=== PATIENT | male | born 1980 | race Caucasian/White ===

== ENCOUNTER 2020-09-06 09:05 | Emergency (ER) | payer OTHER, SELFPAY ==
[2020-09-06 09:24] VITALS: BP 144/91; PULSE 70; RESP 16; TEMP 36.6; O2SAT 99; BMI 31.4
--- NOTE | 2020-09-06 09:46 | US_ITS ---
EXAMINATION: US SCROTUM CLINICAL INFORMATION: Right-sided pain. COMPARISON: None TECHNIQUE: A sonogram of the scrotum was performed assessing hobbs-scale appearance and color Doppler flow. Spectral Doppler analysis of the arterial and venous flow were performed in the testes bilaterally. FINDINGS: RIGHT: Right testicle measures 5.2 x 2.6 x 3.7 cm, volume 26 mL. No focal testicular parenchymal lesions are visualized. Spectral Doppler analysis of the arterial and venous flow is normal in the right testis. Right epididymal head is normal in size. There is a 0.6 x 0.4 x 0.4 cm right epididymal head cyst. No right hydrocele or varicocele is seen. Right epididymal Doppler flow is normal. LEFT: Left testicle measures 5.1 x 2.5 x 4.4 cm, volume 29.3 mL. No focal testicular parenchymal lesions are visualized. Spectral Doppler analysis of the arterial and venous flow is normal in the left testis. Left epididymal head is normal in size. There is a 3 x 2 x 2 mm left epididymal head cyst. There is a small hydrocele. No left varicocele is seen. Left epididymal Doppler flow is normal. US/US scrotum doppler IMPRESSION: Bilateral epididymal head cysts. Small left hydrocele.
--- NOTE | 2020-09-06 09:51 | ED.BACK ---
HPI - Back Pain/Injury General Chief Complaint: Back Pain/Injury Stated Complaint: groin and back pain no inj Time Seen by Provider: 09/06/20 09:21 Source: patient Mode of arrival: ambulatory History of Present Illness HPI Narrative: 39-year-old male no significant past medical history presenting to the ED complaining of 6-7 months of right-sided low back/right hip/right groin pain. Pain describes as a dull ache, admits to being seen in our ED previously for similar symptoms, had negative CT and labs. Denies trauma/falls or injury. Admits pain occasionally radiates from back to groin and testicle. Denies fever, chills, nausea/vomiting, diarrhea/constipation, dysuria/hematuria, testicular pain/swelling/lesions/or discharge. Is sexually active, denies concern for STIs MD elicited complaint: back pain Related Data Allergies Allergy/AdvReac Type Severity Reaction Status Date / Time cefaclor [From CECLOR] Allergy Unknown UNKNOWN Unverified 06/02/20 19:50 erythromycin base Allergy Unknown UNKNOWN Unverified 06/02/20 19:50 [ERYTHROMYCIN BASE] Review of Systems Review of Systems: Constitutional: No Weight loss, No Fever, No Chills Gastrointestinal: No Nausea, No Vomiting, No Diarrhea, No Constipation, + Abdominal pain Genitourinary: No irregular bleeding, No Dysuria, No Urinary Frequency, No Hematuria, No Urinary Incontinence/retention, No Flank Pain, No testicular/scrotal scheduled penile pain or lesions Musculoskeletal: +R hip/groin pain, No Myalgias, No Joint Swelling Skin: No Skin Lesions, No rash Heme/Lymph: No Bruising, No Bleeding,No Lymphadenopathy Yes all other systems are reviewed and are negative [facility] Past Medical History Attestation statement: The following information was validated with the patient. Surgical History (Updated 09/06/20 @ 09:27 by Minerva Rojas) History of tonsillectomy Social History Social History Alcohol intake: never Smoked in Last 30 Days: No Substance Use Type: Marijuana Substance Use Frequency: Daily Last Used Substance: Days (ago) Advance Directives: No Advance Directives Information Provided: Yes Physical Exam Vital Signs: Vital Signs: Last Vital Signs Temp 97.8 F 09/06/20 09:24 Pulse 70 09/06/20 09:24 Resp 16 12/22/20 09:24 BP 144/91 H 12/22/20 09:24 Pulse Ox 99 09/06/20 09:24 Body Mass Index 31.4 Const: General: cooperative and healthy appearing Orientation/consciousness: patient oriented x3 Limitations: no limitations HENMT: Head: Yes normal to inspection Ears: hearing grossly normal bilaterally General nose exam: Normal external nose present Face and sinus: Yes normal facial exam Eyes: General: appearance normal, both eyes and all related structures EOM: EOMs intact bilaterally Neck: Neck: Yes normal visual inspection Resp: Effort & Inspection: normal respiratory effort Cardio: Rate: regular rate Peripheral pulses: dorsalis pedis present GI: Inspection: Yes normal to inspection Palpation (GI): Soft to palpation, nontender, no guarding and not rigid : Other: No testicular tenderness, swelling, lesions, or hernia noted on exam General: Yes no CVA tenderness Scrotum: scrotum normal Testes: Testes normal Back/Spine/Pelvis: Other: No midline thoracic/lumbar spinous tenderness. No reproducible MSK tenderness. No deformity Back: no CVA tenderness Skin: Rashes: no rashes Wounds: no wounds Neuro: General: patient oriented x3 Gait exam (Neuro): Normal gait present Extrem: General: Yes normal to inspection Course Course Course Narrative: UA negative ultrasound showing bilateral epididymal head cysts. Small left hydrocele > results discussed with patient including follow-up with PCP/GI as needed. He verbalized understanding feel safe for discharge home MDM - Back Pain/Injury MDM Narrative Medical decision making narrative: 39-year-old male no significant past medical history presenting to the ED complaining of 6-7 months of right-sided low back/right hip/right groin pain. On exam VSS, NAD/well-appearing, abdomen soft/nontender, no CVAT, no testicular pain or swelling on exam. Concern for MSK pain vs varicocele or possible testicular etiology although unlikely testicular torsion without tenderness on exam. Lower concern for STI. R/o UTI vs ?pyelo Previous labs and CT reviewed and unremarkale Plan: UA, CT NG, testicular ultrasound Lab Data Labs: Lab Results 09/06/20 09/06/20 Range/Units 10:03 11:02 Urine Color YELLOW Urine Appearance CLEAR Urine pH 5.5 (5.0-8.0) Ur Specific [place] >= 1.030 H (1.005-1.025) Urine Protein NEG (NEG-TRACE) MG/DL Urine Glucose (UA) NEG (NEG) MG/DL Urine Ketones NEG (NEG) MG/DL Urine Blood NEG (NEG) Urine Nitrite NEG (NEG) Ur Leukocyte Esterase NEG (NEG) Chlam trachomat DNA PCR Cancelled N.gonorrhoeae DNA (PCR) Cancelled Discharge Plan Discharge Clinical Impression: Groin strain Qualifiers: Encounter type: subsequent encounter Laterality: right Qualified Code(s): S76.211D - Strain of adductor muscle, fascia and tendon of right thigh, subsequent encounter Patient Disposition: Home, Self-Care Instructions: Groin Strain (ED) Additional Instructions: Your ultrasound showed epididymal head cysts and a small left hydrocele, however nothing that would id cause your pain Your urine was not infected You need to follow-up with primary care doctor for this pain Take Tylenol Motrin at home If pain persists or worsens, have fever, nausea/vomiting, testicular pain/swelling return to the ED Follow-up with GI as needed Referrals: Rich Delacruz MD [Physician] - 2 days Atul Ansari [Physician] - 1 week (as needed)
[2020-09-06 10:57] LABS: Glucose Urine UA NEG (NEG); Leukocyte Esterase Urine NEG (NEG); Nitrite Urine NEG (NEG); PH 5.5 (5.0-8.0); Specific Gravity - Urine >= 1.030 (1.005-1.025); Urine Blood NEG (NEG); Urine Ketones NEG (NEG); Urine Protein NEG (NEG-TRACE)
[2020-09-06 10:58] LABS: Appearance Urine CLEAR; Color Urine YELLOW
[2020-09-06 12:00] VITALS: BP 132/88; PULSE 69; RESP 14; TEMP 36.4; O2SAT 99
[2020-09-07 14:17] LABS: N. gonorrhoeae RNA TMA NOT DETECTED (NOT DETECTED)
[2020-09-08 15:20] LABS: C. trachomatis RNA TMA NOT DETECTED (NOT DETECTED)
== END 2020-09-06 12:28 | disposition home or self-care (01) ==
PROVIDERS: Physician Assistant; Emergency Provider Emergency Medicine
DX: S76.211A Strain of adductor muscle, fascia and tendon of right thigh, initial encounter (principal); R10.30 Lower abdominal pain, unspecified; X58.XXXA Exposure to other specified factors, initial encounter; Y93.9 Activity, unspecified; Y92.9 Unspecified place or not applicable; Y99.9 Unspecified external cause status; F12.90 Cannabis use, unspecified, uncomplicated
CPT/HCPCS: 81003; 87491; 87591; 93975; 99284

== ENCOUNTER → 2020-09-27 11:34 | Outpatient (BNVA) | payer OTHER, SELFPAY | PROVIDERS: PCP Internal Medicine; Visit Provider Physician Assistant | DX: K62.5 Hemorrhage of anus and rectum (principal); K21.9 Gastro-esophageal reflux disease without esophagitis; F41.9 Anxiety disorder, unspecified; R74.01 Elevation of levels of liver transaminase levels; R10.11 Right upper quadrant pain | CPT/HCPCS: 99202 ==

== ENCOUNTER 2020-11-02 09:24 | Day surgery (SDC) | payer OTHER, SELFPAY ==
[2020-10-27 10:53] VITALS: BMI 29.9
--- NOTE | 2020-11-01 09:44 | P.CONAN_ITS ---
Documented by User: Hemalatha Higginbotham 11/01/20 09:45 HPI - Anesthesia Eval Consult details Narrative: 40yo M for Upper Endoscopy and Colonoscopy PMF Active Problems Active Problems: All Active Problems (Updated 10/27/20 @ 10:53 by Lanie Correia) Back pain (Acute) Rectal bleeding (Acute) Anxiety (Acute) Acid reflux (Acute) Past Medical History Medical History Acid reflux Anxiety Stomach ulcer Family History Family History Mother Diabetes Father History of thyroid cancer Sister Stomach cancer Paternal Grandfather Hx of bladder cancer History of colon cancer Surgical History Surgical History History of tonsillectomy Hx of myringotomy Social History Social History Household Members: Significant Other Alcohol intake: never Smoking Status: Former smoker Use of substances other than those prescribed or required for medical reasons: Yes Substance Use Type: Marijuana Substance Use Frequency: Daily Have you been hit, kicked, punched, or otherwise hurt by someone within the past year? 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 Meds Allergies Allergy/AdvReac Type Severity Reaction Status Date / Time cefaclor [From CECLOR] Allergy Severe Swelling Verified 10/27/20 10:51 erythromycin base Allergy Severe Swelling Verified 10/27/20 10:51 [ERYTHROMYCIN BASE] Home Medications Medication Instructions Recorded Confirmed Last Taken Type calcium carbonate-mag hydroxid 2 tab PO Q6H PRN 10/27/20 10/27/20 Unknown History [Rolaids] Exam Exam Date and Time: November 01, 2020 0944 Height,Weight and Vital Signs: Height 6 ft 3 in Weight 108.862 kg Assessment and Plan Assessment Anesthesia Assessment: Chart Reviewed Documented by User: Amanda Merchant 11/02/20 10:42 [facility] Past Medical History Medical History Acid reflux Anxiety Stomach ulcer Family History Family History Mother Diabetes Father History of thyroid cancer Sister Stomach cancer Paternal Grandfather Hx of bladder cancer History of colon cancer Family history of problems with anesthesia: No Surgical History Surgical History History of tonsillectomy Hx of myringotomy History of Problems with Anesthesia: No Social History Social History Household Members: Significant Other Alcohol intake: never Smoking Status: Former smoker Use of substances other than those prescribed or required for medical reasons: Yes Substance Use Type: Marijuana Substance Use Frequency: Daily Have you been hit, kicked, punched, or otherwise hurt by someone within the past year? 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 Meds Allergies Allergy/AdvReac Type Severity Reaction Status Date / Time cefaclor [From CECLOR] Allergy Severe Swelling Verified 10/27/20 10:51 erythromycin base Allergy Severe Swelling Verified 10/27/20 10:51 [ERYTHROMYCIN BASE] Home Medications Medication Instructions Recorded Confirmed Last Taken Type calcium carbonate-mag hydroxid 2 tab PO Q6H PRN 10/27/20 10/27/20 Unknown History [Rolaids] Exam Height,Weight and Vital Signs: Vital Signs Temp Pulse Resp BP Pulse Ox 11/02/20 09:39 97.1 F 68 18 125/79 97 Airway Mallampati Class: II TM Dist: >3cm Neck ROM: Full Loose/Missing/Broken Teeth: No (Front teeth all capped) Heart: RRR Lungs: CTAB Assessment and Plan Assessment Anesthesia Assessment: Anesthesia Plan Discussed and Chart Reviewed Final Anesthetic Review NPO: Yes ASA Class: II Final Preanesthetic Review: No Changes in Pt Med Stat, Meds/Allgs Chart Reviewed, Consent Obtained/Reviewed and Anes Risks/Benef Reviewed Patient Risk: Low Procedure Risk: Low Assessment/Block/Sedation in SS: Assess/Block/Sedation-SS Anesthetic Plan Anesthetic Plan: MAC: Disposition: Standard PACU
[2020-11-02 09:39] VITALS: BP 125/79; PULSE 68; RESP 18; TEMP 36.2; O2SAT 97
[2020-11-02] MEDS: Lactated Ringers 1,000 ML 100 ML IVCONT (10:01)
--- NOTE | 2020-11-02 10:54 | MHC.SHP ---
Pre-Procedural Eval Section B Chief Complaint: gerd,hemorrhageof anus and rectum Details of Present Illness: sister gastric cancer Relevant Family History (Specify if Yes): Yes Relevant Social History: None Present Medications: see Short Stay Collaborative assessment (anxiety, GERD) Medical History: Significant History (anxiety, GERD) History of Previous Operations: Relevant previous surgery/procedure and date(s) (History of placement of ear tubes History of tonsillectomy) Allergies: Allergies Allergy/AdvReac Type Severity Reaction Status Date / Time cefaclor [From CECLOR] Allergy Severe Swelling Verified 10/27/20 10:51 erythromycin base Allergy Severe Swelling Verified 10/27/20 10:51 [ERYTHROMYCIN BASE] Review of Systems Sugical H&P ROS: Negative: Constitution, Cardiovascular, Respiratory, Neurological, Psychiatric, Hem-Onc, Allergic/Immunologic, Gastrointestinal, Genitourinary, Musculoskeletal, Integumentary, Endocrine and Eyes/Ears/Nose/Throat Exam Surgical H&P Exam: Normal: HEENT, Normal: Heart, Normal: Lungs, Normal: Extremities, Normal: Abdomen, Normal: Skin and Normal: Neurological Plan Diagnosis/Plan: Unchanged I have reviewed the history and physical and performed a pertinent physical examination on my patient. No changes have occurred unless specified.
--- NOTE | 2020-11-02 10:56 | PM.OP ---
Brief Operative Note Date of Service: 11/02/20 Post-op diagnosis: same Procedure: see op note Surgeon: Beatriz Cedeño MD Anesthesia: MAC Estimated blood loss (mL): 0 Condition: stable Disposition: PACU
--- NOTE | 2020-11-02 10:56 | W.PM.OPN ---
Operative Note Operative Note Date of Service: 11/02/20 Narrative: Operative Information Procedure Description: EGD, Colonoscopy FLEXIBLE TRANSORAL UPPER GASTROINTESTINAL ENDOSCOPY AND COLONOSCOPY PROCEDURE NOTE UPPER ENDOSCOPY Consent: Indications for the procedure and potential complications of bleeding, perforation, reaction to medications and missed diagnosis were discussed with the patient and informed consent was obtained. Instrument: Olympus GIF H 190 J mid size upper endoscope Monitoring: Vital signs and clinical assessment, continuous EKG monitoring, Pulse oximetry, Carbon Dioxide monitoring and blood pressure monitoring were done throughout the procedure. Procedure: The patient was placed in the left lateral decubitis position and pre-procedure medications were administered and a bite block was placed. The endoscope was inserted into the mouth and advanced under direct vision to the third part of duodenum. A careful inspection was made as the upper endoscope was withdrawn including a retroflexed examination of the proximal stomach; Findings and interventions are described below. Findings: Larynx:normal Esophagus: GE junction at 39 cm, diaphragm hiatus at 42 cm, 3 cm sliding hiatal hernia noted, possible short seg barretts, bx taken Stomach: Normal mucosa. Biopsies were obtained from pylorus, antrum, incisura, body, fudus and cardia. Grade 2 flap valve on retroflexed examination of the cardia. Duodenum: Normal bulb and descending duodenum, Intervention: Biopsies as noted above COLONOSCOPY Instrument: Olympus variable stiffness pediatric scope 190L Colonoscopy Monitoring: Vital signs and clinical assessment, continuous EKG monitoring, Pulse oximetry, Carbon Dioxide monitoring and blood pressure monitoring were done throughout the procedure. Colon withdrawal time was 10 minutes. Procedure: The patient was placed in the left lateral decubitis position and pre-procedure medications were administered. After a digital rectal examination of the ano-rectum, the video colonoscope was inserted into the rectum and advanced through the colon to the cecum/TI. The colonoscope was slowly withdrawn in a retrograde panoramic fashion and the colon mucosa was carefully examined including a retroflexed view of the rectum. Findings and interventions are described below. Procedure Difficulty: Findings: Terminal Ileum-normal Cecum:normal, one diverticulum seen Ascending Colon: normal Transverse Colon -normal Descending Colon:normal Sigmoid Colon: normal, few diverticula seen Rectum: Retroflexion with small inflammed internal hemorrhoids, grade I, mild erythema noted, bx taken Anorectum - normal Colon preparation: [place] Bowel Preparation Scale Right colon; 3 Transverse colon: 3 Left colon; 3 (0 = Unprepared colon segment with mucosa not seen due to solid stool that cannot be cleared. 1 = Portion of mucosa of the colon segment seen, but other areas of the colon segment not well seen due to staining, residual stool and/or opaque liquid. 2 = Minor amount of residual staining, small fragments of stool and/or opaque liquid, but mucosa of colon segment seen well. 3 = Entire mucosa of colon segment seen well with no residual staining, small fragments of stool or opaque liquid) Impression and Post Procedure Diagnosis: Endoscopy Findings: hiatal hernia, possible barretts Colonoscopy Findings: internal hemorrhoids diverticular disease Plan: Await Pathology results Repeat Colonoscopy in 10 years or earlier if clinically indicated High fiber diet leaflet avoid straining at stool, epsom salts and sitz bath, anusol supps or cream prn refer for CDH-1 testing, may need annual EGD given FH of stomach cancer in sister (she is currently 43) Above findings were reviewed with the patient and relevant handouts were provided if indicated.
[2020-11-02 11:57] VITALS: BP 94/55; PULSE 58; RESP 16; TEMP 36.3; O2SAT 96
[2020-11-02 12:12] VITALS: BP 121/76; PULSE 61; RESP 16; TEMP 36.3; O2SAT 97
== END 2020-11-02 12:46 | disposition home or self-care (01) ==
PROVIDERS: Visit Provider Internal Medicine Gastroenterology
PROC: (CPT 45380; principal; 2020-11-02 10:50)
DX: K62.5 Hemorrhage of anus and rectum (principal); K62.89 Other specified diseases of anus and rectum; K64.0 First degree hemorrhoids; K57.30 Diverticulosis of large intestine without perforation or abscess without bleeding; K21.9 Gastro-esophageal reflux disease without esophagitis; K44.9 Diaphragmatic hernia without obstruction or gangrene; F12.90 Cannabis use, unspecified, uncomplicated; Z79.899 Other long term (current) drug therapy; Z88.1 Allergy status to other antibiotic agents
CPT/HCPCS: 45380; 43239; 88305; 88342

== ENCOUNTER → 2020-11-14 09:20 | Outpatient (BNVA) | payer OTHER, SELFPAY | PROVIDERS: Visit Provider Internal Medicine Gastroenterology | DX: K21.9 Gastro-esophageal reflux disease without esophagitis (principal) | CPT/HCPCS: 99211 ==

== ENCOUNTER 2020-12-13 13:01 | Outpatient (REF) | payer OTHER, SELFPAY ==
--- NOTE | ~2020-12-13 | XR_ITS ---
EXAMINATION: LUMBAR SPINE AND BILATERAL HIP X-RAY CLINICAL INFORMATION: Pain COMPARISON: Previous CT of the abdomen and pelvis November 2019 TECHNIQUE: 3 views of the lumbar spine. 2 views of each hip. FINDINGS: Lumbar spine: Bone alignment normal. No fracture or dislocation is seen. Disc spaces are normal. Paraspinal soft tissues are normal. Bilateral hip x-ray: Bone alignment is normal. No fracture or dislocation is seen. The joint spaces are normal. Soft tissues are normal. XR/XR lumbar spine 2-3V IMPRESSION: Normal lumbar spine and bilateral hip x-rays.
--- NOTE | ~2020-12-13 | XR_ITS ---
EXAMINATION: LUMBAR SPINE AND BILATERAL HIP X-RAY CLINICAL INFORMATION: Pain COMPARISON: Previous CT of the abdomen and pelvis November 2019 TECHNIQUE: 3 views of the lumbar spine. 2 views of each hip. FINDINGS: Lumbar spine: Bone alignment normal. No fracture or dislocation is seen. Disc spaces are normal. Paraspinal soft tissues are normal. Bilateral hip x-ray: Bone alignment is normal. No fracture or dislocation is seen. The joint spaces are normal. Soft tissues are normal. XR/XR hip LT min 2V IMPRESSION: Normal lumbar spine and bilateral hip x-rays.
--- NOTE | ~2020-12-13 | XR_ITS ---
EXAMINATION: LUMBAR SPINE AND BILATERAL HIP X-RAY CLINICAL INFORMATION: Pain COMPARISON: Previous CT of the abdomen and pelvis November 2019 TECHNIQUE: 3 views of the lumbar spine. 2 views of each hip. FINDINGS: Lumbar spine: Bone alignment normal. No fracture or dislocation is seen. Disc spaces are normal. Paraspinal soft tissues are normal. Bilateral hip x-ray: Bone alignment is normal. No fracture or dislocation is seen. The joint spaces are normal. Soft tissues are normal. XR/XR hip RT min 2V IMPRESSION: Normal lumbar spine and bilateral hip x-rays.
== END 2020-12-13 13:02 | disposition home or self-care (01) ==
LOC: HO.XRAY 13:01
PROVIDERS: PCP Internal Medicine; Visit Provider Internal Medicine
DX: M54.9 Dorsalgia, unspecified (principal); M25.551 Pain in right hip; M25.552 Pain in left hip
CPT/HCPCS: 72100; 73502

== ENCOUNTER → 2020-12-19 14:39 | Outpatient (BNVA) | payer OTHER, SELFPAY | PROVIDERS: PCP Internal Medicine; Visit Provider Internal Medicine Gastroenterology ==

== ENCOUNTER 2021-01-16 08:28 | Emergency (ER) | payer OTHER, SELFPAY ==
--- NOTE | ~2021-01-16 | CT_ITS ---
EXAMINATION: CT HEAD WITHOUT CONTRAST CLINICAL INFORMATION: Seizure HEADACHE. COMPARISON: None TECHNIQUE: Contiguous axial imaging was performed from the skull base to vertex without intravenous administration of contrast. This CT examination was performed using dose optimization techniques as appropriate, variously including the following: *Automated exposure control *Adjustment of mA and/or kV according to patient size (this includes techniques or standardized protocols for targeted exams where dose is matched to indication/reason for exam; i.e. extremities or head) *Use of iterative reconstruction technique DLP: 824 mGy-cm FINDINGS: There is no evidence of acute intracranial hemorrhage or territorial infarction. No abnormal mass effect or midline shift is seen. Yo to white matter differentiation is well preserved. No extra-axial fluid collections are identified. The ventricles are normal in size. There is no abnormal attenuation within the brain parenchyma. The osseous structures and soft tissues are normal. The mastoid air cells and visualized portions of the paranasal sinuses are well aerated. CT/CT head/brain wo con IMPRESSION: No acute intracranial process seen
--- NOTE | ~2021-01-16 | CT_ITS ---
EXAMINATION: CT ANGIOGRAM NECK WITH CONTRAST CT ANGIOGRAM BRAIN WITH CONTRAST CLINICAL INFORMATION: Severe exertional occipital headache. Rule out dissection and aneurysm. COMPARISON: Noncontrast head CT performed earlier today. TECHNIQUE: Test bolus sequences followed by intravenous administration 70 mL of Omnipaque 350. Helical imaging was performed in the axial plane from the thoracic inlet to the skull vertex. Delayed postcontrast imaging of the head was also performed. The data was processed at the eeg technologist workstation for generation of MIP sequences. Angled MIPs and volume rendered reformatted images were also generated at an offline 3D workstation. Stenoses are assessed in accordance with NASCET criteria unless otherwise indicated. The technologist notes that the IV started leaking during the injection the patient moved. This CT examination was performed using dose optimization techniques as appropriate, variously including the following: *Automated exposure control *Adjustment of mA and/or kV according to patient size (this includes techniques or standardized protocols for targeted exams where dose is matched to indication/reason for exam; i.e. extremities or head) *Use of iterative reconstruction technique DLP: 2285 mGy-cm FINDINGS: Head CT: There is no intracranial hemorrhage, large acute infarction, or mass lesion. The ventricles are normal in size and configuration without evidence of hydrocephalus. No abnormal enhancement is seen. The dural venous sinuses are normally opacified. The visualized paranasal sinuses and mastoid air cells are clear. Neck CTA: There is a normal aortic arch with no significant stenosis of the great vessel origins. The common and internal carotid arteries are normal in course and caliber. Both vertebral arteries are widely patent throughout their extracranial cervical course. Head CTA: No intracranial aneurysm is seen. The intracranial internal carotid arteries appear normal. The anterior cerebral artery, anterior communicating artery, and middle cerebral arteries appear normal. The intradural vertebral arteries and basilar artery appear normal. The posterior cerebral arteries appear normal. Non-vascular findings: The imaged portions of the lungs are clear. The cervical soft tissues are within normal limits. The spine is intact. CT/CT angio head neck IMPRESSION: CT head: No intracranial hemorrhage or large acute infarction. CTA neck: No hemodynamically significant stenosis in the major arteries of the neck. CTA head: No large vessel occlusion or significant stenosis within the intracranial circulation.
[2021-01-16 08:39] VITALS: BP 136/81; PULSE 66; RESP 16; TEMP 36.8; O2SAT 97; BMI 31.4
[2021-01-16 10:35] LABS: MANUAL DIFF FLAG NO
[2021-01-16 10:38] LABS: Basophils Percent Auto 0.5 % (0-2); Eosinophils Absolute Auto 0.2 X10*3/uL (0.0-0.4); Eosinophils Percent Auto 3.3 % (0-4); Hematocrit 41.3 % (42-52); Hemoglobin 14.5 g/dl (14.0-18.0); Imm Gran Abs Auto 0.03 X10*3/uL (0.00-0.03); Imm Gran Pct Auto 0.5 % (0.0-0.4); Lymphocytes Absolute Auto 1.9 X10*3/uL (1.2-4.9); Lymphocytes Percent Auto 30.6 % (20-40); Mean Corpuscular HGB Conc 35.1 g/dl (31.0-36.0); Mean Corpuscular Hemoglobin 29.4 pg (27.0-33.0); Mean Corpuscular Volume 83.6 fL (80-98); Mean Platelet Volume 11.3 fL (9.4-12.4); Monocytes Absolute Auto 0.5 X10*3/uL (0.1-1.2); Monocytes Percent Auto 8.9 % (2-11); Neutrophils Absolute Auto 3.4 X10*3/uL (2.0-8.3); Neutrophils Percent Auto 56.2 % (45-73); Platelet Count 182 X10*3/uL (160-400); Red Blood Count 4.94 X10*6/uL (4.60-5.80); Red Cell Distribution Width 12.7 % (11.0-16.0); White Blood Count 6.1 X10*3/uL (4.8-10.8)
[2021-01-16] MEDS: diphenhydrAMINE HCL 50 MG/ML VIAL 25 MG IVPUSH (11:01)
[2021-01-16] MEDS: Butalb/Acetamin/Caff 50/325/40 TABLET 1 TAB PO (11:01)
[2021-01-16] MEDS: Metoclopramide HCl 10 MG/2 ML VIAL IVPUSH (11:01)
--- NOTE | 2021-01-16 11:13 | ED.HA ---
HPI - Headache General Chief Complaint: Headache Stated Complaint: head pain Time Seen by Provider: 01/16/21 10:21 Source: patient Mode of arrival: ambulatory Limitations: no limitations History of Present Illness HPI Narrative: 40 y/o male with no medical problems presents to the ER with severe posterior, throbbing headache that has occurred for the last 3 days during sexual intercourse. He states the pain makes him curl up into a ball for about 5-10 minutes and then the pain starts to dissipate some. Today the pain persisted so he came to the ER for evaluation. He states it is throbbing in nature and in the back lower part of his head. He has never had headaches like this before. He is not on any medications, including Viagra. He denies weakness, numbness, tingling, dizziness, N/V, or vision changes. Denies trauma or injury. MD elicited complaint: headache Onset (ago): day(s) (3) Onset description: suddenly Location: occipital Severity: severe Quality & Timing: throbbing Exacerbating factors: exertion Relieving factors: rest Context: occurred with exertion/activity Associated symptoms: none Treatments prior to arrival: other (arthritis powder packet ) Related Data Home Medications Medication Instructions Recorded Confirmed calcium carbonate-mag hydroxid 2 tab PO Q6H PRN 10/27/20 10/27/20 [Rolaids] Previous Rx's Medication Instructions Recorded omeprazole 20 mg capsule,delayed 20 mg PO DAILY #30 cap 09/27/20 release bisacodyl 5 mg tablet,delayed 10 mg PO ONCE 1 Days #2 tab 10/27/20 release polyethylene glycol 3350 17 238 g PO ONCE 1 Days #238 g 10/27/20 gram/dose oral powder hydrocortisone 2.5 % topical cream 1 appl ME BID-QID PRN #30 g 12/19/20 with perineal applicator naproxen 500 mg PO BID PRN #20 tab 01/16/21 Allergies Allergy/AdvReac Type Severity Reaction Status Date / Time cefaclor [From [facility]] Allergy Severe Swelling Verified 12/19/20 14:39 erythromycin base Allergy Severe Swelling Verified 12/19/20 14:39 [ERYTHROMYCIN BASE] Review of Systems Review of Systems: Constitutional: No Fever, No Chills ENT/Mouth: No sore throat, No Swallowing Difficulty Eyes: No Eye Pain, No Swelling, No Redness Cardiovascular: No Chest Pain, No SOB Respiratory: No Cough, No Sputum Gastrointestinal: No Nausea, No Vomiting, No Diarrhea, No abdominal Pain Musculoskeletal: No joint pain, No Myalgias Skin: No Skin Lesions, No rash Neuro: No Weakness, No Numbness, No Dizziness, + Headache Heme/Lymph: No Bruising, No Lymphadenopathy PMF Past Medical History Attestation statement: The following information was validated with the patient. Medical History Acid reflux Anxiety Stomach ulcer Surgical History H/O colonoscopy History of esophagogastroduodenoscopy (EGD) History of tonsillectomy Hx of myringotomy Family History Family History Mother Diabetes Father History of thyroid cancer Sister Stomach cancer Paternal Grandfather Hx of bladder cancer History of colon cancer Social History Social History Household Members: Significant Other Household Members Other:: Alcohol intake: never Smoking Status: Former smoker Substance Use Type: Marijuana Advance Directives: Yes Advance Directives Information Provided: Yes Advance Directives on File: No service: No Current occupational status: employed 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 Oriented X3. No acute distress. Eyes: Pupils equal, round and reactive to light. ENT: Pharynx normal. Neck: Normal inspection. Neck supple. CVS: Normal heart rate and rhythm. Pulses normal. Respiratory: No respiratory distress. Breath sounds normal. Abdomen: Soft and nontender. +BS x4 Skin: Skin warm and dry. Normal skin color. Normal skin turgor. No rashes. Extremities: No lower extremity edema. Neuro: Oriented X 3. No motor deficit. No sensory deficit. Equal and symmetrical strength throughout. Normal finger to nose and heel to johnson bilaterally. Course Course Course Narrative: 40 y/o male presenting with severe, throbbing headache that has occurred 3 days in a row during sexual intercourse. Headache persisted today after rest so he came for evaluation. Neuro exam is non-focal. Will get labs and CT head for further evaluation. Given Benadryl, reglan and fiorcet. Reevaluation(s) Reevaluation #1: Lab workup is unremarkable. CT head is negative. Case d/w Dr. Farley - will proceed with CTA head/neck to r/o dissections and aneurysm. Reevaluation #2: CTA negative. Patient's throbbing is now resolved. His headache is likely primary exertional. This was discussed with the patient and need for outpatient follow. MDM - Headache Differential Diagnosis Differential diagnosis: Likely migraine, tension headache, subarachnoid hemorrhage and headache Lab Data Result diagrams: 01/16/21 10:25 01/16/21 10:25 Labs: Lab Results 01/16/21 01/16/21 01/16/21 Range/Units 10:25 10:25 10:25 WBC 6.1 (4.8-10.8) X10*3/uL RBC 4.94 (4.60-5.80) X10*6/uL Hgb 14.5 (14.0-18.0) g/dl Hct 41.3 L (42-52) % MCV 83.6 (80-98) fL MCH 29.4 (27.0-33.0) pg MCHC 35.1 (31.0-36.0) g/dl RDW 12.7 (11.0-16.0) % Plt Count 182 (160-400) X10*3/uL MPV 11.3 (9.4-12.4) fL Immature Gran % (Auto) 0.5 H (0.0-0.4) % Neut % (Auto) 56.2 (45-73) % Lymph % (Auto) 30.6 (20-40) % Quay % (Auto) 8.9 (2-11) % Eos % (Auto) 3.3 (0-4) % Baso % (Auto) 0.5 (0-2) % Lymph # (Auto) 1.9 (1.2-4.9) X10*3/uL Quay # (Auto) 0.5 (0.1-1.2) X10*3/uL Eos # (Auto) 0.2 (0.0-0.4) X10*3/uL Baso # (Auto) 0.0 (0.0-0.2) X10*3/uL Abs Immat Gran (auto) 0.03 (0.00-0.03) X10*3/uL Absolute Neuts (auto) 3.4 (2.0-8.3) X10*3/uL Absolute Nucleated RBC 0.000 (0.0-0.012) X10*3/uL Nucleated RBC % (auto) 0.0 (0.0-0.2) /100WBC Hold Blue Top SEE NOTE Sodium 138 (135-145) mmol/L Potassium 4.5 (3.3-5.1) mmol/L Chloride 102 (96-108) mmol/L Carbon Dioxide 28 (22-29) mmol/L Anion Gap 13 (12-20) BUN 17 H (9-16) mg/dL Creatinine 1.02 (0.5-1.4) mg/dL Estim Creat Clear Calc 127.6 Estimated GFR > 60 Random Glucose 92 (60-115) mg/dL Calcium 9.6 (8.4-10.2) mg/dL Critical Care Time Critical Care Time Critical Care Time: No Discharge Plan Discharge Clinical Impression: Headache Qualifiers: Headache type: primary exertional headache Qualified Code(s): G44.84 - Primary exertional headache Patient Disposition: Home, Self-Care Instructions: General Headache (ED) Additional Instructions: Your CT scans today were normal. Your blood workup was unremarkable. Your headaches are likely exertional. Recommend rest for the next 304 days and staying hydrated. Take the prescribed medication before exertion. Follow up with your doctor this week Prescriptions: New naproxen 500 mg tablet 500 mg PO BID PRN (Reason: pain) Qty: 20 RF: 0 No Action polyethylene glycol 3350 [Miralax] 17 gram/dose powder 238 g PO ONCE 1 Days Qty: 238 RF: 0 bisacodyl [Dulcolax (bisacodyl)] 5 mg tablet,delayed release (DR/EC) 10 mg PO ONCE 1 Days Qty: 2 RF: 0 Rolaids 550-110 mg Tablet,Chewable 2 tab PO Q6H PRN (Reason: Heartburn) RF: 0 omeprazole 20 mg capsule,delayed release(DR/EC) 20 mg PO DAILY Qty: 30 RF: 5 hydrocortisone [Anusol-HC] 2.5 % cream with perineal applicator 1 appl ME BID-QID PRN (Reason: hemorrhoids) Qty: 30 RF: 1
[2021-01-16 11:21] LABS: Anion Gap 13 (12-20); Blood Urea Nitrogen 17 mg/dL (9-16); Calcium 9.6 mg/dL (8.4-10.2); Carbon Dioxide 28 mmol/L (22-29); Chloride 102 mmol/L (96-108); Creatinine Clr Calc Pharmacy 127.6; Estimated Glomerular Filt Rate > 60; Glucose Random 92 mg/dL (60-115); Potassium 4.5 mmol/L (3.3-5.1); Sodium 138 mmol/L (135-145)
[2021-01-16 12:00] VITALS: BP 112/71; PULSE 51; RESP 20; TEMP 36.6; O2SAT 98
[2021-01-16] MEDS: iohexoL 350 MG/ML 100 ML INFUS..BTL IV (12:27)
== END 2021-01-16 13:48 | disposition home or self-care (01) ==
PROVIDERS: Emergency Provider Emergency Medicine; PCP Internal Medicine
DX: G44.84 Primary exertional headache (principal); F12.90 Cannabis use, unspecified, uncomplicated; Z79.899 Other long term (current) drug therapy; Z87.891 Personal history of nicotine dependence
CPT/HCPCS: 36415; 70450; 70496; 70498; 80048; 85025; 96374; 96375; 99284; J1200; J2765; Q9967

== ENCOUNTER 2021-11-13 13:39 | Outpatient (REF) | payer OTHER, SELFPAY ==
--- NOTE | ~2021-11-13 | US_ITS ---
EXAMINATION: US THYROID CLINICAL INFORMATION: Localized swelling, mass and lump, neck. COMPARISON: None TECHNIQUE: Linear transducer grayscale and color Doppler examination with attention to the region of the thyroid. FINDINGS: SIZE: Measurements of the thyroid lobes and nodules are given in sagittal, anteroposterior and transverse dimensions respectively. Right Thyroid Lobe: 5.8 x 1.6 x 1.8 cm, volume 8.6 mL. Parenchyma: The gland echotexture is homogeneous. Thyroid vascularity is normal. Left Thyroid Lobe: 5.0 x 1.4 x 1.7 cm, volume 6.5 mL. Parenchyma: The gland echotexture is homogeneous. Thyroid vascularity is normal. Isthmus: 0.3 cm in maximum AP dimension. Estimated total number of nodules greater than or equal to 1 cm: 0. Dragline Operator Helper nodules are described as follows: 1. Location: Left mid. Size: 0.2 x 0.2 x 0.2 cm, volume 0.004 mL. Nodule characteristics: Composition: Solid (2). Echogenicity: Hypoechoic (2). Shape: Not taller than wide (0). Margins: Ill-defined (0). Echogenic Foci: None (0). ACR TI-RADS total points: 4 ACR TI-RADS category: 4 NODES: There is a small right cervical lymph node, probably level 5. This is normal in size measuring 0.7 centimeters in transverse dimension and demonstrates normal ultrasound morphology and flow. US/US thyroid IMPRESSION: Small solitary right thyroid nodule. This does not meet TI RADS criteria for follow-up. Small right cervical lymph node. ACR TI-RADS RECOMMENDATION REFERENCE: Ultrasound-guided fine-needle aspiration, followup ultrasound, no further follow up. * TR1 (0 point) and TR 2 (2 points): No FNA or follow up * TR3 (3 points): FNA if more than or equal to 2.5 cm in maximum dimension, followup ultrasound in 1, 3 and 5 years if 1.5 to 2.4 cm in maximum dimension. * TR4 (4-6 points): FNA if more than or equal to 1.5 cm in maximum dimension, followup ultrasound in 1, 2, 3 and 5 years if 1 to 1.4 cm in maximum dimension. * TR5 (more than or equal to 7 points): FNA if more than or equal to 1 cm in maximum dimension, followup ultrasound every year for 5 years if 0.5 to 0.9 cm in maximum dimension. * TR3, TR4 or TR5 nodules that are below the size threshold for follow up receive no follow up.
[2021-11-13 15:26] LABS: TSH reflex Free T4 2.24 uIU/mL (0.32-4.0)
== END 2021-11-13 13:40 | disposition home or self-care (01) ==
LOC: HO.US 13:39
PROVIDERS: PCP Internal Medicine; Visit Provider Nurse Practitioner Family
DX: Z13.29 Encounter for screening for other suspected endocrine disorder (principal); R22.1 Localized swelling, mass and lump, neck
CPT/HCPCS: 36415; 76536; 84443

== ENCOUNTER 2021-11-23 22:52 | Emergency (ER) | payer OTHER, MEDICAID, SELFPAY ==
--- NOTE | ~2021-11-23 | XR_ITS ---
EXAMINATION: XR WRIST, LEFT CLINICAL INFORMATION: Puncture wound. Rule out fracture or foreign body. COMPARISON: None TECHNIQUE: PA, lateral, and oblique views of the left wrist. XR/XR wrist LT 2V FINDINGS/IMPRESSION: Soft tissue swelling and laceration in the medial and anterior compartments of the wrist. No acute fractures or malalignment. No unexpected foreign bodies.
[2021-11-23 22:58] VITALS: BP 117/72; PULSE 84; RESP 16; TEMP 36.6; O2SAT 98; BMI 23.1
--- NOTE | 2021-11-23 23:37 | ED.EXTPRO ---
HPI - Extremity Problem General Chief complaint: Extremity Injury, Upper Stated complaint: Arm inj/?Lac Time Seen by Provider: 11/23/21 23:05 Source: patient Mode of arrival: ambulatory Limitations: no limitations History of Present Illness HPI Narrative: 41-year-old male who presents emergency department for evaluation of left wrist pain. The patient states that earlier today he was using a drill. He states that the drill but broke and he accidentally drilled into his left wrist. The patient had 2 puncture wounds to the wrist. He went to an urgent care clinic and was evaluated. He states that the wound was cleaned, anesthetized with local anesthesia and they wanted to get an x-ray prior to suturing the wound but the patient refused and left. initial injury occurred around 15:00 hours. The local anesthesia was given around 16:00 hours. He states that he was given a tetanus shot and also started on clindamycin. Since leaving the urgent care clinic however he has had severe, throbbing pain to his left wrist. He also states that after he got the anesthesia is able to move his fingers and thumb without any difficulty, states that his thumb is now non and he has severe pain when he moves his thumb and his fingers. He states that the pain is 10/10. He is not certain if his thumb was numb prior to the to local anesthesia. He took Tylenol , ibuprofen and some of his 's oxycodone without relief of his pain. Related Data Previous Rx's Medication Instructions Recorded diphenhydramine HCl 25 mg tablet 25 mg PO BEDTIME PRN #10 tab 10/11/21 (Benadryl Allergy) prednisone 10 mg tablet 10 mg PO DAILY #18 tab 10/11/21 sulfamethoxazole 800 1 tab PO Q12H 7 Days #14 tab 10/11/21 mg-trimethoprim 160 mg tablet (Bactrim DS) oxycodone 5 mg tablet 5 mg PO Q4H PRN #14 tab 11/24/21 Allergies Allergy/AdvReac Type Severity Reaction Status Date / Time cefaclor [From [facility]] Allergy Severe Swelling Verified 10/11/21 15:28 erythromycin base Allergy Severe Swelling Verified 10/11/21 15:28 [ERYTHROMYCIN BASE] Review of Systems Review of Systems: Yes all other systems are reviewed and are negative [facility] Past Medical History [facility] Narrative: Past medical history: Reviewed below. Past surgical history: Reviewed below. Social history: He denies tobacco, alcohol and states that he does smoke marijuana. Medical History Acid reflux Anxiety Stomach ulcer Surgical History H/O colonoscopy History of esophagogastroduodenoscopy (EGD) History of tonsillectomy Hx of myringotomy Family History Family History (Updated 10/17/21 @ 08:36 by NIKOS Haro) Mother Diabetes Father History of thyroid cancer Medullary carcinoma Sister Stomach cancer Paternal Grandfather Hx of bladder cancer History of colon cancer Social History Social History Household Members: Significant Other Household Members Other:: Alcohol intake: never Substance Use Type: Marijuana Advance Directives: No service: No Current occupational status: employed 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 HENMT: Head: Yes normocephalic and Yes atraumatic Eyes: General: appearance normal, both eyes and all related structures Resp: Effort & Inspection: normal respiratory effort Extrem: Other: The patient has 2 puncture wounds to the flexor surface of the left wrist, the patient has some limited flexion secondary to pain. Movement of his thumb and fingers seem to cause increased pain, he has difficulty making okay sign and touching his thumb to his 5th finger. has diminished light touch to thumb and thenar and minutes. Course Course Course Narrative: 41-year-old male who presents emergency department for evaluation of left wrist pain after accidental puncture wound with a drill the happened earlier in the day. The patient was seen at an urgent care clinic and his wound was cleaned and anesthetized with local anesthetic in order to repair the wound however the patient left since he did not want to wait for x-rays. Since leaving the urgent care clinic he states that his right thumb is numb he is having severe pain in his wrist, forearm and thumb. movement of his wrist and fingers especially some seem to exacerbate the pain. Will obtain x-rays of the wrist. I do not think that this puncture wound tree be sutured but he should continue taking antibiotics as prescribed by the urgent care clinic. I did order Toradol 60 mg IM. 0046 : The patient did get some relief with the IM Toradol. x-rays did not reveal any clear bony injury however the radiologist did state that there is soft tissue swelling and a laceration and the medial and anterior compartment of the wrist. Given the fact that the patient's pain seemed out of proportion to the injury, I did consider compartment syndrome and I did consult our on-call orthopedic surgeon, Dr. Abel. He thought that compartment syndrome was less likely and that the patient's pain was probably more related to injury to the digital nerve of the thumb. He recommended a thumb spica splint. The hand surgeon in their group is on vacation but Dr. Abel did agree to see the patient tomorrow for re-evaluation and possible referral to a local hand surgeon in the event that this may need surgical repair. The patient was advised to take Tylenol and ibuprofen for pain. He was also prescribed oxycodone. He was placed in a thumb spica splint by the electronic lab technician and I did examine the patient up the splint was applied. The patient has diminished sensation to the thumb which is unchanged but is hand appears to be vascularly intact with good capillary refill. Discharge Plan Discharge Clinical Impression: Puncture wound of left wrist Qualifiers: Encounter type: initial encounter Qualified Code(s): S61.532A - Puncture wound without foreign body of left wrist, initial encounter Injury of digital nerve of left thumb Qualifiers: Encounter type: initial encounter Qualified Code(s): S64.32XA - Injury of digital nerve of left thumb, initial encounter Patient Disposition: Home, Self-Care Instructions: Puncture Wound (DC) Additional Instructions: Keep the thumb spica splint on until you are re-evaluated this morning by the orthopedic surgeon on-call, Dr. Abel. Take ibuprofen 200 mg pills, 3 pills every 6 hours as needed for pain. Take Tylenol (acetaminophen) 500 mg pills, 2 pills every 4-6 hours as needed for pain. For pain not relieved by ibuprofen or Tylenol take oxycodone 5 mg pills, 1 pill every 4 hours as needed for pain. Do not drive or work while taking this medication since they can cause sleepiness. Oxycodone is a narcotic medication that can be addicting. If you are concerned about addiction you can ask the pharmacist for less pills or do not get this prescription filled. Call Dr. Abel's office this morning at 08:00. When you talk to the office , let the physician office secretary know that I spoke to Dr. Abel and he wants to see you in the office this morning to re-evaluate your injury and to see if you need to be sent to a hand surgeon today. Please return to the emergency department if your symptoms get worse or if you develop any symptoms that are concerning to you. Prescriptions: New oxycodone 5 mg tablet 5 mg PO Q4H PRN (Reason: pain) Qty: 14 0RF Rx Instructions: Patient may request partial fill No Action prednisone 10 mg tablet 10 mg PO DAILY Qty: 18 0RF Rx Instructions: Take 3 tablets for 3 days then, Take 2 tablets 3 days then, Take 1 tablet 3 days and stop sulfamethoxazole-trimethoprim [Bactrim DS] 800-160 mg tablet 1 tab PO Q12H 7 Days Qty: 14 0RF diphenhydramine HCl [Benadryl Allergy] 25 mg tablet 25 mg PO BEDTIME PRN (Reason: sleep) Qty: 10 0RF Referrals: Leandro Abel MD [Physician] - 11/24/21 8:00 am ( a call the office to make the appointment today)
[2021-11-23] MEDS: Ketorolac Tromethamine 60 MG/2 ML VIAL IM (23:49)
--- NOTE | 2021-11-24 00:18 | PC.NURSE ---
REEVALED BY PROVIDER. THUMB SPIKA SPLINT ORDERED. ORTHO CONSULTED.
== END 2021-11-24 01:02 | disposition home or self-care (01) ==
PROVIDERS: Emergency Provider Emergency Medicine Emergency Medical Services; PCP Internal Medicine
DX: S61.532A Puncture wound without foreign body of left wrist, initial encounter (principal); S64.32XA Injury of digital nerve of left thumb, initial encounter; W29.8XXA Contact with other powered hand tools and household machinery, initial encounter; Y93.9 Activity, unspecified; Y92.9 Unspecified place or not applicable; Y99.9 Unspecified external cause status
CPT/HCPCS: 73100; 96372; 99284; J1885

== ENCOUNTER → 2021-11-24 12:57 | Outpatient (BNVA) | payer OTHER, MEDICAID, SELFPAY | PROVIDERS: PCP Internal Medicine; Visit Provider Physician Assistant | DX: S61.532A Puncture wound without foreign body of left wrist, initial encounter (principal); S64.32XA Injury of digital nerve of left thumb, initial encounter | CPT/HCPCS: 99202 ==

== ENCOUNTER 2022-09-18 09:00 | Outpatient (REF) | payer OTHER, SELFPAY ==
[2022-09-18 09:21] LABS: MANUAL DIFF FLAG NO
[2022-09-18 10:07] LABS: Basophils Percent Auto 0.7 % (0-2); Eosinophils Absolute Auto 0.1 X10*3/uL (0.0-0.4); Eosinophils Percent Auto 2.4 % (0-4); Hematocrit 41.8 % (42.0-52.0); Hemoglobin 14.8 g/dl (14.0-18.0); Imm Gran Abs Auto 0.06 X10*3/uL (0.00-0.03); Lymphocytes Absolute Auto 1.6 X10*3/uL (1.2-4.9); Lymphocytes Percent Auto 28.3 % (20-40); Mean Corpuscular HGB Conc 35.4 g/dl (31.0-36.0); Mean Corpuscular Hemoglobin 28.8 pg (27.0-33.0); Mean Corpuscular Volume 81.3 fL (80.0-98.0); Mean Platelet Volume 11.9 fL (9.4-12.4); Monocytes Absolute Auto 0.6 X10*3/uL (0.1-1.2); Monocytes Percent Auto 10.4 % (2-11); Neutrophils Absolute Auto 3.3 x10*3/uL (2.0-8.3); Neutrophils Percent Auto 57.2 % (45-73); Platelet Count 231 X10*3/uL (160-400); Red Blood Count 5.14 X10*6/uL (4.60-5.80); Red Cell Distribution Width 13.4 % (11.0-16.0); White Blood Count 5.8 X10*3/uL (4.8-10.8)
[2022-09-18 11:33] LABS: Triglycerides 1814 mg/dL
[2022-09-18 11:43] LABS: Alanine Aminotransferase 40 U/L (0-40); Albumin Level 4.5 g/dL (3.5-5.0); Anion Gap 11 (12-20); Aspartate Amino Transferase 38 U/L (5-37); Bilirubin Total 0.6 mg/dL (0.0-1.0); Blood Urea Nitrogen 18 mg/dL (9-16); Calcium 9.4 mg/dL (8.4-10.2); Carbon Dioxide 24 mmol/L (22-29); Chloride 106 mmol/L (96-108); Cholesterol 368 mg/dL; Estimated Glomerular Filt Rate > 60; Glucose Fasting 98 mg/dL (60-99); HDL Cholesterol 23 mg/dL; Potassium 4.3 mmol/L (3.3-5.1); Sodium 137 mmol/L (135-145)
[2022-09-18 12:15] LABS: Alkaline Phosphatase 89 U/L (39-117)
== END 2022-09-18 09:01 | disposition home or self-care (01) ==
LOC: HO.LAB 09:00
PROVIDERS: PCP Internal Medicine; Visit Provider Internal Medicine
DX: Z13.0 Encounter for screening for diseases of the blood and blood-forming organs and certain disorders involving the immune mechanism (principal); I10 Essential (primary) hypertension; E78.5 Hyperlipidemia, unspecified
CPT/HCPCS: 36415; 80053; 80061; 85025

== ENCOUNTER 2022-10-01 13:00 | Outpatient (REF) | payer OTHER, SELFPAY ==
--- NOTE | ~2022-10-01 | US_ITS ---
EXAMINATION: US SCROTUM CLINICAL INFORMATION: Testicular pain, unspecified. COMPARISON: Scrotal ultrasound 09/06/2020. TECHNIQUE: A sonogram of the scrotum was performed assessing hobbs-scale appearance and color Doppler flow. Spectral Doppler analysis of the arterial and venous flow were performed in the testes bilaterally. FINDINGS: RIGHT: Right testicle measures 5.5 x 3.1 x 3.6 cm, volume 31.4 mL. No focal testicular parenchymal lesions are visualized. Spectral Doppler analysis of the arterial and venous flow is normal in the right testis. 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 Right epididymal head is normal. There is a 5 mm right epididymal head cyst versus spermatocele. No right varicocele is seen. Right epididymal Doppler flow is normal. There is a small hydrocele. LEFT: Left testicle measures 5.9 x 2.8 x 3.8 cm, volume 33.1 mL. No focal testicular parenchymal lesions are visualized. Spectral Doppler analysis of the arterial and venous flow is normal in the left testis. 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 Appendix epididymis noted. Left epididymal head is normal. There is a 3 mm right epididymal head cyst versus spermatocele. No left varicocele is seen. Left epididymal Doppler flow is normal. There is a small hydrocele. US/US scrotum IMPRESSION: 1. Small bilateral epididymal head cysts versus spermatoceles are seen. 2. There are small bilateral hydroceles. 3. No testicular mass or torsion is noted bilaterally.
== END 2022-10-01 13:01 | disposition home or self-care (01) ==
LOC: HO.US 13:00
PROVIDERS: PCP Internal Medicine; Visit Provider Internal Medicine
DX: N50.819 Testicular pain, unspecified (principal)
CPT/HCPCS: 76870

== ENCOUNTER → 2022-10-08 09:56 | Outpatient (BNVA) | payer OTHER, SELFPAY | PROVIDERS: PCP Internal Medicine; Visit Provider Nurse Practitioner Family | DX: R10.31 Right lower quadrant pain (principal); R10.32 Left lower quadrant pain | CPT/HCPCS: 99202 ==

== ENCOUNTER 2023-10-04 12:27 | Outpatient (AMB) | payer OTHER, SELFPAY ==
--- NOTE | 2023-10-04 13:47 | MHC.OFFWIV ---
Intake Vital Signs 10/04/23 13:54 Height 6 ft 1 in Weight 264 lb BMI 34.8 BP 146/90 H Blood Pressure Location Rt brachial Position Sitting Pulse 102 H Pulse Source Pulse Oximeter Temp 97.7 F Temp Source Oral Pulse Oximetry (%) 97 Oxygen Delivery Method Room Air Intake Visit Reasons: EST/congestion([phone]) Intake Note: Pt is here today for chest congestion, pt states he feels like he has bumps on the back of his tongue. Patient Tobacco Use Status: Never used Tobacco Allergies cefaclor [From CECLOR] Allergy (Severe, Verified 10/04/23 13:48) Swelling erythromycin base [ERYTHROMYCIN BASE] Allergy (Severe, Verified 10/04/23 13:48) Swelling Do you need a note to return to daycare/school/sports/work: No HPI HPI Comments History of Present Illness Details 42 y/o male patient presents to walk in clinic with c/o chest congestion.Recent sick contacts - his children with COVID and RSV. PFSH Medical History Acid reflux Anxiety Stomach ulcer Surgical History H/O colonoscopy History of esophagogastroduodenoscopy (EGD) History of surgery on left wrist History of tonsillectomy Hx of myringotomy Family History Mother Diabetes Father History of thyroid cancer Medullary carcinoma Sister Stomach cancer Paternal Grandfather Hx of bladder cancer History of colon cancer Social History Household Members: Significant Other Household Members Other:: Housing: Apartment Alcohol intake: never Patient Tobacco Use Status: Never used Tobacco e-Cigarette/Vaping Use: Never Used Second Hand Smoke Exposure: No Substance Use Type: Marijuana service: No Current occupational status: employed 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 Cognitive needs: No Hearing needs: No Vision needs: No Review of Systems Const All systems reviewed & are unremarkable except as noted in HPI and below Physical Exam Vital Signs: Last Vital Signs Temp 97.7 F 10/04/23 13:54 Pulse 102 H 10/04/23 13:54 BP 146/90 H 10/04/23 13:54 Pulse Ox 97 10/04/23 13:54 Oxygen Delivery Method Room Air 10/04/23 13:54 BMI result Body Mass Index 34.8 Const General: no acute distress HEENT Head: Yes normocephalic Ears: external ears normal and TM's normal bilaterally General nose exam: Abnormal mucous membranes and turbinates present boggy and erythematous and Nasal discharge present Face and sinus: Yes sinus tenderness Mouth: moist mucous membranes Throat: Yes posterior oropharynx normal Resp Effort & Inspection: abnormal respiratory pattern, audible wheezes and Actively coughing Auscultation: no crackles, no rales, no rhonchi and wheezes scattered wheezes Cardio Rate: regular rate Office Procedures Nebulizer Treatment Nebulizer Treatment 88507-Aifgoxdta/MDI RX initial, or Nebulizer Subsequent Treatment Office Meds ipratropium 0.5 mg-albuterol 3 mg (2.5 mg base)/3 mL nebulization soln Performing Provider: Adriana Morris NP Performing Location: [facility] Administered by: Kaylene Gambino RN on 10/04/23 14:12 Dose Route Admin Location Dispensed Lot Number Expiration Date [employer] Coord[employer] 3 mL inhalation 3 mL [id number] 06/16/24 [id number] [facility] Assessment & Plan Assessment & Plan (1) Chest congestion: Code(s): R09.89 - Other specified symptoms and signs involving the circulatory and respiratory systems Plan: - DuoNeb with some improvement. - warm fluids -Rest. (2) Upper respiratory infection: Code(s): J06.9 - Acute upper respiratory infection, unspecified Qualifiers: URI type: unspecified URI Qualified Code(s): J06.9 - Acute upper respiratory infection, unspecified Plan: - DuoNeb with some improvement. - warm fluids -Rest. Orders: Orders SARS-CoV2/FLU/RSV Today J06.9 - Acute upper respiratory infection, unspecified, R09.89 - Other specified symptoms and signs involving the circulatory and respiratory systems AMB Nebulizer Treatment Today J06.9 - Acute upper respiratory infection, unspecified, R09.89 - Other specified symptoms and signs involving the circulatory and respiratory systems Medications: New doxycycline hyclate 100 mg PO BID 7 days 14 caps 0RF J06.9 - Acute upper respiratory infection, unspecified, R09.89 - Other specified symptoms and signs involving the circulatory and respiratory systems prednisone 50 mg PO DAILY 5 days 5 tabs 0RF wheezing J06.9 - Acute upper respiratory infection, unspecified, R09.89 - Other specified symptoms and signs involving the circulatory and respiratory systems albuterol sulfate 90 mcg/actuation 2 puffs inhalation Q4-6H PRN 6.7 grams 0RF shortness of breath or wheezing J06.9 - Acute upper respiratory infection, unspecified, R09.89 - Other specified symptoms and signs involving the circulatory and respiratory systems Coding Level of Care Code Est Pt Level 3 (84092) Diagnoses Chest congestion R09.89 Upper respiratory tract infection, unspecified type J06.9 URI type: unspecified URI CPT Codes Nebulizer Treatment - Nebulizer Treatment, initial or subsequent: [id number]-Yoahbppup/MDI RX initial, or Nebulizer Subsequent Treatment ([id number]) Time Spent (min) 20
[2023-10-04 13:54] VITALS: BP 146/90; PULSE 102; TEMP 36.5; O2SAT 97; BMI 34.8
== END 2023-10-04 14:34 | disposition home or self-care (01) ==
PROVIDERS: PCP Internal Medicine; Visit Provider Nurse Practitioner Family
DX: R09.89 Other specified symptoms and signs involving the circulatory and respiratory systems (principal); J12.1 Respiratory syncytial virus pneumonia
CPT/HCPCS: 94640; 99214; J7620

== ENCOUNTER 2023-10-04 17:18 | Outpatient (REF) | payer OTHER, SELFPAY ==
[2023-10-04 18:07] LABS: Influenza A PCR NEGATIVE (Negative); Influenza B PCR NEGATIVE (Negative); Resp Syncy Virus RNA Qual PCR POSITIVE (Negative); SARS COV2 PCR INHOUSE NEGATIVE (Negative)
== END 2023-10-04 17:19 | disposition home or self-care (01) ==
LOC: HO.LNP 17:18
PROVIDERS: Visit Provider Nurse Practitioner Family
DX: Z11.52 Encounter for screening for COVID-19 (principal); J06.9 Acute upper respiratory infection, unspecified; R09.89 Other specified symptoms and signs involving the circulatory and respiratory systems
CPT/HCPCS: 0241U

== ENCOUNTER 2023-10-23 13:24 | Outpatient (AMB) | payer OTHER, SELFPAY ==
[2023-10-23 13:26] VITALS: BP 130/80; PULSE 87; O2SAT 98; BMI 35.9
--- NOTE | 2023-10-23 13:26 | A.OFFPC_ITS ---
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 Operator: Not Required per policy Accompanied by: Self / Same As Patient Allergies cefaclor [From CECLOR] Allergy (Severe, Verified 10/23/23 13:26) Swelling erythromycin base [ERYTHROMYCIN BASE] Allergy (Severe, Verified 10/23/23 13:26) Swelling Tobacco use date assessed: 10/23/23 Dental Screening Dental Screen Date: 10/23/23 Did you have a dental visit in the last 12 months?: Yes Did you have a dental problem in the last 6 months where you did not have access to dental care?: No Was dental information given to patient?: Patient has dentist HPI Neck Soreness HPI Details left sided neck soreness and possible lump PFSH Medical History Acid reflux Anxiety Stomach ulcer Surgical History History of surgery on left wrist History of esophagogastroduodenoscopy (EGD) H/O colonoscopy Hx of myringotomy History of tonsillectomy Family History Mother Diabetes Father History of thyroid cancer Medullary carcinoma Sister Stomach cancer Paternal Grandfather Hx of bladder cancer History of colon cancer Social History Household Members: Significant Other Household Members Other:: Housing: Apartment Alcohol intake: never Patient Tobacco Use Status: Never used Tobacco e-Cigarette/Vaping Use: Never Used Second Hand Smoke Exposure: No Substance Use Type: Marijuana service: No Current occupational status: employed 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 1. Little interest or pleasure in doing things: not at all 2. Feeling down, depressed, or hopeless: not at all 3. Trouble falling or staying asleep, or sleeping too much: not at all 4. Feeling tired or having little energy: not at all 5. Poor appetite or overeating: not at all 6. Feeling bad about yourself - or that you are a failure or have let yourself or your family down: not at all 7. Trouble concentrating on things, such as reading the newspaper or watching television: not at all 8. Moving or speaking so slowly that other people could have noticed. Or the opposite - being so fidgety or restless that you have been moving around a lot more than usual: not at all 9. Thoughts that you would be better off or of hurting yourself in some way: not at all Total score: 0 Depression Screening Interpretation: Negative Depression Screening Done: Yes Source: Developed by Drs. Aaron Gracia, Palma Chávez, Pavan Lundberg and colleagues, with an educational joseph from [employer]. Thrive Questionnaire Date Thrive assessed: 10/23/23 I am a: Patient What is your living situation today?: I have a steady place to live Within the past 12 months, did the food you bought not last and you didn't have the money to get more?: Never true Within the past 12 months, did you worry whether your food would run out before you got money to buy more?: Never true Do you have trouble paying for medicines?: No Do you have trouble getting transportation to medical appointments?: No Do you have trouble paying your heating and electricity bill?: No Do you have trouble taking care of your child, family member or friend?: No Do you have trouble with day-to-day activities such as bathing, preparing meals, shopping, managing finances, etc.?: No Are you currently unemployed and looking for a job?: No Are you interested in more education?: No Please select the resources that you would like help with: None THRIVE Score: 0 AUDIT C Alcohol Use Questionnaire (AUDIT-C) 1. How often do you have a drink containing alcohol?: Never Total Score: 0 Score Reviewed/Action Taken: No RACQUEL-7 AMB Questionnaire RACQUEL-7 Date RACQUEL - 7 assessed: 10/23/23 Feeling nervous, anxious, or on edge: 0 = Not at all Not being able to stop or control worryin = Not at all Worrying too much about different things: 0 = Not at all Trouble relaxin = Not at all Being so restless that it is hard to sit still: 0 = Not at all Becoming easily annoyed or irritable: 0 = Not at all Feeling afraid as if something awful might happen: 0 = Not at all Total RACQUEL-7 score (0-4 normal; 5-9 mild; 10-14 moderate; 15-21 severe): 0 Source: Developed by Drs. Aaron Gracia, Palma Chávez, Pavan Lundberg and colleagues, with an educational joseph from [employer] [facility]. Review of Systems Const Denies chills, Denies headache(s) and Denies weight loss ENT Denies headache(s) Card Denies chest pain, Denies syncope, Denies irregular heart rhythm and Denies dyspnea Resp Denies chest congestion, Denies cough and Denies dyspnea GI Denies abdominal pain, Denies change in stool character, Denies nausea and Denies vomiting Musc Denies deformity and Denies joint swelling Neuro Denies syncope and Denies headache(s) Physical exam (Primary Care) Vital Signs: Last Vital Signs Pulse 87 10/23/23 13:26 BP 130/80 10/23/23 13:26 Pulse Ox 98 10/23/23 13:26 Oxygen Delivery Method Room Air 10/23/23 13:26 BMI result Body Mass Index 35.9 Tobacco/Smoking Status: Tobacco use Status Tobacco use date assessed 10/23/23 10/23/23 13:31 Patient Tobacco Use Status Never used Tobacco 10/23/23 13:31 e-Cigarette/Vaping Use Never Used 10/23/23 13:31 PHQ-9: PHQ-9 Score PHQ-9: Total score 0 10/23/23 13:31 Depression Screening Interpretation: Negative Thrive Assessment: Date of Thrive Assessment Date Thrive assessed 10/23/23 10/23/23 13:31 Const General: cooperative, comfortable, no acute distress and alert Neck Neck: Yes no lymphadenopathy Thyroid: Thyroid normal Resp Effort & Inspection: normal respiratory effort Auscultation: clear to auscultation bilaterally Percussion: percussion normal Cardio Jugular venous distension: no JVD Palpation: normal PMI Rate: regular rate Rhythm: regular rhythm Heart sounds: S1 normal heart sound present and S2 normal heart sound present GI Inspection: Yes normal to inspection Palpation (GI): No hepatosplenomegaly present Skin General skin exam: no rashes or lesions noted Extrem General: Yes no clubbing, cyanosis or edema Assessment and Plan Assessment & Plan (1) Neck pain: Code(s): M54.2 - Cervicalgia Plan: although no mass was detected, pt has that sensation; ct to be obtained Orders: Orders Lipid Panel Today E78.5 - Hyperlipidemia, unspecified Comprehensive Jenera. Panel Fast Today N28.9 - Disorder of kidney and ureter, unspecified Thyroid Stimulating Hormone Today E03.9 - Hypothyroidism, unspecified CT soft tissue neck w IV con 10/23/23 R22.1 - Localized swelling, mass and lump, neck Complete Blood Count Auto Diff Today D64.9 - Anemia, unspecified Coding Level of Care Code Est Pt Level 3 (32939) Diagnoses Neck pain M54.2 Additional Codes PHQ-9 - 74952 - PHQ-9 Billing: ([id number])
== END 2023-10-23 13:41 | disposition home or self-care (01) ==
PROVIDERS: PCP Internal Medicine; Visit Provider Internal Medicine
DX: M54.2 Cervicalgia (principal)
CPT/HCPCS: 99213

== ENCOUNTER 2023-10-24 11:49 | Outpatient (REF) | payer OTHER, SELFPAY ==
[2023-10-24 12:08] LABS: MANUAL DIFF FLAG NO
[2023-10-24 12:20] LABS: Basophils Percent Auto 0.7 % (0-2); Eosinophils Absolute Auto 0.2 X10*3/uL (0.0-0.4); Hematocrit 36.3 % (42.0-52.0); Hemoglobin 13.2 g/dl (14.0-18.0); Imm Gran Abs Auto 0.04 X10*3/uL (0.00-0.03); Imm Gran Pct Auto 0.7 % (0.0-0.4); Lymphocytes Absolute Auto 1.7 X10*3/uL (1.2-4.9); Mean Corpuscular HGB Conc 36.4 g/dl (31.0-36.0); Mean Corpuscular Hemoglobin 29.9 pg (27.0-33.0); Mean Corpuscular Volume 82.3 fL (80.0-98.0); Mean Platelet Volume 11.1 fL (9.4-12.4); Monocytes Absolute Auto 0.5 X10*3/uL (0.1-1.2); Monocytes Percent Auto 8.8 % (2-11); Neutrophils Absolute Auto 3.2 x10*3/uL (2.0-8.3); Neutrophils Percent Auto 56.8 % (45-73); Platelet Count 200 X10*3/uL (160-400); Red Blood Count 4.41 X10*6/uL (4.60-5.80); Red Cell Distribution Width 13.5 % (11.0-16.0); White Blood Count 5.7 X10*3/uL (4.8-10.8)
[2023-10-24 12:59] LABS: Cholesterol 484 mg/dL (<200); HDL Cholesterol 27 mg/dL (>40)
[2023-10-24 13:06] LABS: Triglycerides 2100 mg/dL (<150)
[2023-10-24 13:11] LABS: Thyroid Stimulating Hormone 1.59 uIU/mL (0.32-4.0)
[2023-10-24 13:32] LABS: Alanine Aminotransferase 53 U/L (0-40); Albumin Level 4.1 g/dL (3.5-5.0); Alkaline Phosphatase 66 U/L (39-117); Anion Gap 15 (12-20); Aspartate Amino Transferase 32 U/L (5-37); Bilirubin Total 0.4 mg/dL (0.0-1.0); Blood Urea Nitrogen 16 mg/dL (9-16); Calcium 9.8 mg/dL (8.4-10.2); Carbon Dioxide 23 mmol/L (22-29); Chloride 106 mmol/L (96-108); Estimated Glomerular Filt Rate > 60; Glucose Fasting 94 mg/dL (60-99); Potassium 4.3 mmol/L (3.3-5.1); Sodium 140 mmol/L (135-145); Total Protein 7.1 g/dL (6.5-8.0)
== END 2023-10-24 11:50 | disposition home or self-care (01) ==
LOC: HO.LAB 11:49
PROVIDERS: PCP Internal Medicine; Visit Provider Internal Medicine
DX: E78.5 Hyperlipidemia, unspecified (principal); N28.9 Disorder of kidney and ureter, unspecified; E03.9 Hypothyroidism, unspecified; D64.9 Anemia, unspecified
CPT/HCPCS: 36415; 80053; 80061; 84443; 85025

== ENCOUNTER 2023-10-28 10:15 | Outpatient (AMB) | payer OTHER, SELFPAY ==
[2023-10-28 10:18] VITALS: BP 150/72; PULSE 64; O2SAT 98; BMI 35.9
--- NOTE | 2023-10-28 10:18 | A.OFFPC_ITS ---
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 Required: No Partnership Development Manager: Not Required per policy Accompanied by: Self / Same As Patient Allergies cefaclor [From CECLOR] Allergy (Severe, Verified 10/28/23 10:18) Swelling erythromycin base [ERYTHROMYCIN BASE] Allergy (Severe, Verified 10/28/23 10:18) Swelling Medication List - Last Reconciled 10/28/23 by Ramirez Bray MD No Known Home Meds Tobacco use date assessed: 10/23/23 Dental Screening Dental Screen Date: 10/28/23 Did you have a dental visit in the last 12 months?: Yes Did you have a dental problem in the last 6 months where you did not have access to dental care?: No Was dental information given to patient?: Patient has dentist HPI discuss labs HPI Details has hi chol and TG; has a poor diet; needs to start rx and ref to nut PFSH Medical History Acid reflux Anxiety Stomach ulcer Surgical History History of surgery on left wrist History of esophagogastroduodenoscopy (EGD) H/O colonoscopy Hx of myringotomy History of tonsillectomy Family History (Updated 10/28/23 @ 10:20 by MACI Talavera) Mother Diabetes Father History of thyroid cancer Medullary carcinoma Sister Stomach cancer Paternal Grandfather Hx of bladder cancer History of colon cancer Social History Household Members: Significant Other Household Members Other:: Housing: Apartment Alcohol intake: never Patient Tobacco Use Status: Never used Tobacco e-Cigarette/Vaping Use: Never Used Second Hand Smoke Exposure: No Substance Use Type: Marijuana service: No Current occupational status: employed 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 Aaron Gracia, Palma Chávez, Pavan Lundberg and colleagues, with an educational joseph from [employer]. Review of Systems Const Denies chills, Denies headache(s) and Denies weight loss ENT Denies headache(s) Card Denies chest pain, Denies syncope, Denies irregular heart rhythm and Denies dyspnea Resp Denies chest congestion, Denies cough and Denies dyspnea GI Denies abdominal pain, Denies change in stool character, Denies nausea and Denies vomiting Musc Denies deformity and Denies joint swelling Neuro Denies syncope and Denies headache(s) Physical exam (Primary Care) Vital Signs: Last Vital Signs Pulse 64 10/28/23 10:18 BP 150/72 H 10/28/23 10:18 Pulse Ox 98 10/28/23 10:18 Oxygen Delivery Method Room Air 10/28/23 10:18 BMI result Body Mass Index 35.9 Tobacco/Smoking Status: Tobacco use Status Tobacco use date assessed 10/23/23 10/28/23 10:20 Patient Tobacco Use Status Never used Tobacco 10/28/23 10:20 e-Cigarette/Vaping Use Never Used 10/28/23 10:20 Thrive Assessment: Date of Thrive Assessment Date Thrive assessed 10/23/23 10/28/23 10:20 Const General: cooperative, comfortable, no acute distress and alert Neck Neck: Yes no lymphadenopathy Thyroid: Thyroid normal Resp Effort & Inspection: normal respiratory effort Auscultation: clear to auscultation bilaterally Percussion: percussion normal Cardio Jugular venous distension: no JVD Palpation: normal PMI Rate: regular rate Rhythm: regular rhythm Heart sounds: S1 normal heart sound present and S2 normal heart sound present GI Inspection: Yes normal to inspection Palpation (GI): No hepatosplenomegaly present Skin General skin exam: no rashes or lesions noted Extrem General: Yes no clubbing, cyanosis or edema Assessment and Plan Assessment & Plan (1) Hyperlipidemia: Code(s): E78.5 - Hyperlipidemia, unspecified Plan: rx and ref Orders: Orders Lipid Panel Today E78.5 - Hyperlipidemia, unspecified Amylase Today R10.9 - Unspecified abdominal pain Referrals Earth Moving Technician Nutrition Referral E78.5 - Hyperlipidemia, unspecified Medications: New atorvastatin 40 mg PO DAILY 90 tabs 3RF Coding Level of Care Code Est Pt Level 3 (09269) Diagnoses Hyperlipidemia E78.5
== END 2023-10-28 10:46 | disposition home or self-care (01) ==
PROVIDERS: PCP Internal Medicine; Visit Provider Internal Medicine
DX: E78.5 Hyperlipidemia, unspecified (principal)
CPT/HCPCS: 99213